=== PATIENT | female | born 1965 | race Caucasian/White ===

== ENCOUNTER 2025-04-17 08:31 | Outpatient (CLI) | payer OTHER ==
[2025-04-17 09:46] LABS: #Basophils 0.1 thou/uL (0.0-0.2); #Eosinophils 0.2 thou/uL (0.0-0.7); #Lymphocytes 1.5 thou/uL (1.20-3.40); #Monocytes 0.4 thou/uL (0.11-0.59); #Neutrophils 2.2 thou/uL (1.40-6.50); %Basophils 1.7 % (0.0-1.0); %Eosinophils 4.0 % (0.0-10.0); %Lymphocytes 34.2 % (21.0-51.0); %Monocytes 9.7 % (0.0-10.0); %Neutrophils 50.5 % (42.0-75.0); Hematocrit 36.2 % (36.0-47.0); Hemoglobin 12.9 g/dL (12.0-16.0); Mean Corpuscular Hemoglobin 28.9 pg (27.0-31.0); Mean Corpuscular Volume 81.4 fl (78.0-98.0); Platelet Count 301 10x3/uL (130-400); Red Blood Cell (RBC) Count 4.45 mill/uL (4.20-5.40); White Blood Cell (WBC) Count 4.4 10x3/uL (4.8-10.8)
[2025-04-17 09:50] LABS: ALT (SGPT) 30 U/L (Less than 34); AST (SGOT) 22 U/L (11-34); Albumin 4.4 g/dL (3.1-4.5); Alkaline Phosphatase 59 U/L (40-110); Anion Gap 15 mmol/L (10-20); BUN (Urea Nitrogen) 15 mg/dL (9.8-20.1); Bilirubin, Total 0.6 mg/dL (0.3-1.2); Calc. Creatinine Clearance 0 mL/min (70-130); Calcium 9.0 mg/dL (7.8-10.44); Carbon Dioxide 25 mmol/L (22-29); Cardiac Risk 3.8 (Less than 4.5); Chloride 104 mmol/L (98-107); Cholesterol 283 mg/dl (< 200 Desired); Globulin 2.6 g/dL (2.4-3.5); Glucose 89 mg/dL (70-105); HDL Cholesterol 75 mg/dL (>60 Neg Risk); LDL Cholesterol, Calculated 194 mg/dL; Potassium 4.4 mmol/L (3.5-5.1); Sodium 140 mmol/L (136-145); Triglycerides 69 mg/dL (Less than 150)
[2025-04-17 10:10] LABS: Thyroid Stimulating Hormone 10.6334 uIU/mL (0.35-4.94)
[2025-04-17 13:18] LABS: Reference Lab Name LABCORP
[2025-04-17 13:50] LABS: Vitamin D, 25 Hydroxy 67.8 ng/ml (> 30.0)
[2025-04-17 17:16] LABS: Estradiol, Serum Less than 10 pg/mL
== END 2025-04-17 08:32 | disposition home or self-care (01) ==
LOC: BURLAB 08:31
PROVIDERS: ATTEND Naturopath
DX: Z00.00 Encounter for general adult medical examination without abnormal findings (principal); E55.9 Vitamin D deficiency, unspecified; Z82.61 Family history of arthritis
CPT/HCPCS: 36415; 80050; 80061; 82306; 82670; 83036; 84144; 86140